=== PATIENT | female | born 1985 | race Two or more races ===

== ENCOUNTER 2017-01-12 08:12 | Outpatient (CLI) | payer MEDICAID ==
[~2017-01-12 08:12] MED LIST: ALFUZOSIN HCL10 MG PO; IBUPROFEN600 MG ORAL; NKM; NORCO 5-325 TA1 EACH ORAL
--- NOTE | 2017-01-12 11:26 | Diagnostic Imaging Report ---
Indication: STONES sided pain Technique: Spiral acquisitions obtained through the abdomen and pelvis. No oral or IV contrast utilized, per urinary stone protocol. Multiplanar reconstructions were generated. Total dose length product 65 mGycm. CTDIvol(s) 14 mGy. Dose reduction achieved using automated exposure control Comparison: 07/20/2015 Findings: 3 mm left upper pole calyceal calcification is again demonstrated. 4 mm left lower pole appears to migrated from its previous position in an interpolar region calyx. A 3 mm calculus is again demonstrated in the right interpolar region. Right lower pole calculus previously described is not currently evident. Previously demonstrated large right distal ureteral calculus is no longer evident. Currently, no ureteral calculi, hydronephrosis, or hydroureter is demonstrated. No significant perinephric fat stranding. Lack of IV contrast limits assessment of the renal parenchyma; no gross renal parenchyma cyst or mass demonstrated. Lack of IV contrast limits assessment of the other solid organs. A small calcification is again demonstrated in the right hepatic lobe. No gross focal liver lesion otherwise. The gallbladder, bile ducts, pancreas, spleen, adrenals are unremarkable. No retroperitoneal or mesenteric mass or adenopathy. No pelvic mass or adenopathy. The uterus and adnexal structures are unremarkable. Previously demonstrated left ovarian cyst is no longer evident. Previously demonstrated free pelvic fluid is no longer evident. The appendix is normal. No evidence of diverticulosis or diverticulitis. No small bowel distention. No free or loculated intraperitoneal air or fluid is evident. The included lung bases are clear. The bones are unremarkable. Impression: Bilateral intrarenal calculi. No evidence of ureteral calculi or hydronephrosis. Note that a right lower pole calyceal calculus that was evident previously is no longer present, may have passed in the interim. Note also the previously demonstrated right distal ureteral calculus is no longer evident. No other acute abnormality demonstrated. Small calcification within the liver, probably old granulomatous disease. The CT scanner at [facility] is accredited by the [employer] and the scans are performed using protocols designed to limit radiation exposure to as low as reasonably achievable to attain images of sufficient resolution adequate for diagnostic evaluation.
== END 2017-01-12 10:12 | disposition home or self-care (01) ==
LOC: CAT 08:12
DX: N20.0 Calculus of kidney (principal)
CPT/HCPCS: 74176

== ENCOUNTER 2017-03-17 08:15 | Emergency (ER) | payer BC, OTHER ==
[~2017-03-17] VITALS: Ht 165.1 cm; Wt 67.6 kg
--- NOTE | 2017-03-17 08:43 | Emergency Room Report ---
History of Present Illness General Chief Complaint: Abdominal Pain Source: Patient Present Illness HPI Patient presents with one hour of left lower quadrant pain. She rates it a 5/ 10. She thinks this is a kidney stone. She's had several. She denies any fevers or hematuria. She denies dysuria. She didn't take any medication for the pain this morning. She came for an ultrasound of. She's headache. Denies any nausea or vomiting. She does have Flomax at home but didn't take any of. The last stone the pain was much more severe. Had surgery May with 7 mm stone. Calcium oxylate. She doesn't believe she is . Denies cough, SOB, vomiting, diarrhea, dysuria, joint pain, headache, anxiety. Allergies: Coded Allergies: No Known Allergies (Unverified , 05/20/16) Patient History Past Medical History: see triage record Social History: Denies: smoking Social History Narrative it infrastructure consultant Last Menstrual Period: 02/17/17 Now: No : 1 Para: 0 Reviewed Nursing Documentation: PMH: Agreed, PSxH: Agreed Nursing Documentation-PMH Past Medical History: No History, Except For Hx Cardiac Problems: No - 3 kidney stones Review of Systems All Other Systems: negative except mentioned in HPI Physical Exam Vital Signs Date Time Temp Pulse Resp B/P (MAP) Pulse Ox O2 Delivery O2 Flow Rate FiO2 03/17/17 08:26 97.9 68 12 112/89 98 Room Air Sp02 EP Interpretation: reviewed, normal General Appearance: well appearing, no apparent distress, GCS 15 Head: normocephalic Eyes: bilateral eye normal inspection, bilateral eye PERRL ENT: moist mucus membranes Neck: supple Respiratory: lungs clear, normal breath sounds Cardiovascular #1: regular rate, rhythm Cardiovascular #2: 2+ radial (R) Gastrointestinal: normal inspection, normal bowel sounds, non tender, no mass, non-distended, tenderness - minimal LLQ Musculoskeletal: back normal, gait/station normal, normal range of motion Neurologic: alert, oriented x3, grossly normal Psychiatric: mood/affect normal Skin: normal inspection, warm/dry Medical Decision Making Diagnostic Impression: Primary Impression: Urolithiasis Qualified Codes: N20.0 - Calculus of kidney ER Course Patient presents with left lower quadrant pain and bruises she is a kidney stone. Differential also includes ovarian cyst, UTI and diverticulitis. She is no fever and no vomiting and no diarrhea. Evaluation will be with labs urinalysis and ultrasound. She'll be receiving IV hydration and Toradol. Labs with hematuria. WBC normal. Ultrasound suggests stone but not definitively identified. No hydro. (See report and below.) Patient improved with hydration and analgesia. Patient stable for outpatient observation and treatment. Laboratory Tests Test 03/17/17 06:00 03/17/17 09:05 Urine Color Pale yellow Urine Appearance Cloudy Urine pH 5 (4.5-8.0) Urine Specific [place] 1.015 (1.005-1.035) Urine Protein 2+ (NEGATIVE) H Urine Glucose (UA) Negative (NEGATIVE) Urine Ketones Negative (NEGATIVE) Urine Occult Blood 5+ (NEGATIVE) H Urine Nitrite Negative (NEGATIVE) Urine Bilirubin Negative (NEGATIVE) Urine Urobilinogen Normal MG/DL (0.0-1.0) Urine Leukocyte Esterase 1+ (NEGATIVE) H Urine RBC 60-80 /HPF (0 - 2) H Urine WBC 2-4 /HPF (0 - 2) Urine Squamous Epithelial Cells Occasional /LPF Urine Bacteria Occasional /HPF (NONE) Urine HCG, Qualitative Negative White Blood Count 6.4 K/UL (4.8-10.8) Red Blood Count 4.80 M/UL (4.20-5.40) Hemoglobin 13.5 G/DL (12.0-16.0) Hematocrit 43.1 % (37.0-47.0) Mean Corpuscular Volume 90 FL (80-99) Mean Corpuscular Hemoglobin 28.2 PG (27.0-31.0) Mean Corpuscular Hemoglobin Concent 31.4 G/DL (32.0-36.0) L Red Cell Distribution Width 12.5 % (11.6-14.8) Platelet Count 234 K/UL (150-450) Mean Platelet Volume 7.1 FL (6.5-10.1) Neutrophils (%) (Auto) 57.5 % (45.0-75.0) Lymphocytes (%) (Auto) 32.6 % (20.0-45.0) Monocytes (%) (Auto) 7.6 % (1.0-10.0) Eosinophils (%) (Auto) 1.6 % (0.0-3.0) Basophils (%) (Auto) 0.8 % (0.0-2.0) Sodium Level 140 mEQ/L (135-145) Potassium Level 4.1 mEQ/L (3.4-4.9) Chloride Level 104 mEQ/L (98-107) Carbon Dioxide Level 27 mEQ/L (20-30) Anion Gap 9 (5-15) Blood Urea Nitrogen 17 mg/dL (7-23) Creatinine 0.8 mg/dL (0.5-0.9) Estimate Glomerular Filtration Rate > 60 mL/min (>60) Glucose Level 100 mg/dL (74-106) Calcium Level 9.3 mg/dL (8.6-10.2) Total Bilirubin < 0.2 mg/dL (0.0-1.2) Aspartate Amino Transferase (AST) 23 U/L (5-40) Alanine Aminotransferase (ALT) 14 U/L (3-33) Alkaline Phosphatase 56 U/L (35-104) Total Protein 7.1 g/dL (6.6-8.7) Albumin 4.1 g/dL (3.5-5.2) Globulin 3.0 g/dL Albumin/Globulin Ratio 1.3 (1.0-2.7) Lipase 26 U/L (< 60) CT/MRI/US Diagnostic Results CT/MRI/US Diagnostic Results : Imaging Test Ordered: US Impression The size, contour, and echogenicity of both kidneys are within normal limits. There are punctate echogenic foci in the left kidney likely small nonobstructive stones. There is no definite hydronephrosis. Left kidney is 11.6 cm. Right kidney is 10.4 cm. This The IVC and urinary bladder are unremarkable. Impression: Suspected nonobstructive stones within the left kidney. Last Vital Signs Date Time Temp Pulse Resp B/P (MAP) Pulse Ox O2 Delivery O2 Flow Rate FiO2 03/17/17 10:52 64 15 108/63 100 Room Air 03/17/17 10:11 97.3 Status: improved Disposition: HOME, SELF-CARE Condition: Improved Scripts Tamsulosin HCl (Flomax) 0.4 Mg Cap.er.24h 0.4 MG ORAL DAILY, #7 CAP Prov: Bradley Banda M.D. 03/17/17 Ibuprofen* (MOTRIN*) 600 Mg Tablet 600 MG ORAL Q6H Y for For Pain, #16 TAB Prov: Bradley Banda M.D. 03/17/17 Bradley Banda M.D. Mar 17, 2017 08:43
[2017-03-17] MEDS ORDERED: Ketorolac 30mg Inj IV ONE (08:45)
[2017-03-17 09:21] LABS: APPEARANCE,URINE CLOUDY; KETONES,URINE NEGATIVE (NEGATIVE); LEUKOCYTE ESTERASE ,URINE 1+ (NEGATIVE); NITRITE,URINE NEGATIVE (NEGATIVE); PH,URINE 5 (4.5-8.0); PROTEIN,URINE 2+ (NEGATIVE); UROBILINOGEN,URINE NORMAL MG/DL (0.0-1.0)
[2017-03-17 09:21] LABS: BASOPHILS % (AUTO) 0.8 % (0.0-2.0); EOSINOPHILS % (AUTO) 1.6 % (0.0-3.0); LYMPHOCYTES % (AUTO) 32.6 % (20.0-45.0); MEAN CORPUSCULAR HEMOGLOBIN 28.2 PG (27.0-31.0); MEAN CORPUSCULAR HGB CONC 31.4 G/DL (32.0-36.0); MEAN CORPUSCULAR VOLUME 90 FL (80-99); MEAN PLATELET VOLUME 7.1 FL (6.5-10.1); MONOCYTES % (AUTO) 7.6 % (1.0-10.0); NEUTROPHILS % (AUTO) 57.5 % (45.0-75.0); PLATELET COUNT 234 K/UL (150-450); RED CELL DISTRIBUTION WIDTH 12.5 % (11.6-14.8); WHITE BLOOD COUNT 6.4 K/UL (4.8-10.8)
[2017-03-17 09:35] LABS: BACTERIA,URINE OCCASIONAL /HPF; RBC,URINE 60-80 /HPF (0 - 2); SQUAMOUS EPITHELIAL CELL,UR OCCASIONAL /LPF (NONE/OCC)
[2017-03-17 09:41] LABS: ALANINE AMINOTRANSFERASE 14 U/L (3-33); ALBUMIN/GLOBULIN RATIO 1.3 (1.0-2.7); ANION GAP 9 (5-15); ASPARTATE AMINO TRANSFERASE 23 U/L (5-40); CALCIUM 9.3 mg/dL (8.6-10.2); CARBON DIOXIDE 27 mEQ/L (20-30); CHLORIDE 104 mEQ/L (98-107); CREATININE 0.8 mg/dL (0.5-0.9); GLOMERULAR FILTRATION RATE > 60 mL/min (>60); HEMOLYSIS 2; LIPASE 26 U/L (< 60); POTASSIUM 4.1 mEQ/L (3.4-4.9); SODIUM 140 mEQ/L (135-145); TOTAL PROTEIN 7.1 g/dL (6.6-8.7)
[2017-03-17 09:45] VITALS: BP 106/67
[2017-03-17] MEDS ORDERED: IBUPROFEN600 MG ORAL (10:31)
[2017-03-17] MEDS ORDERED: FLOMAX0.4 MG ORAL (10:31)
[2017-03-17 10:52] VITALS: BP 108/63
--- NOTE | 2017-03-17 11:41 | Diagnostic Imaging Report ---
Indication:Elevated Bun and Creatinine. Technique: Grayscale and duplex Doppler imaging of the kidneys performed. Comparison: None Findings: The size, contour, and echogenicity of both kidneys are within normal limits. There are punctate echogenic foci in the left kidney likely small nonobstructive stones. There is no definite hydronephrosis. Left kidney is 11.6 cm. Right kidney is 10.4 cm. This The IVC and urinary bladder are unremarkable. Impression: Suspected nonobstructive stones within the left kidney.
== END 2017-03-17 10:54 | disposition home or self-care (01) ==
LOC: EMR 08:56
DX: N20.9 Urinary calculus, unspecified (principal); Z87.442 Personal history of urinary calculi
CPT/HCPCS: 36415; 76775; 80053; 81003; 81025; 83690; 85025; 96361; 96374; 99284; J1885

== ENCOUNTER 2017-06-09 04:13 | Emergency (ER) | payer BC, OTHER ==
[~2017-06-09] VITALS: Ht 165.1 cm; Wt 66.7 kg
[~2017-06-09 04:13] MED LIST changes: +FLOMAX0.4 MG ORAL
[2017-06-09] MEDS ORDERED: TERCONAZOLE20 G1 VG (04:34)
[2017-06-09] MEDS ORDERED: FLUCONAZOLE100 MG ORAL (04:34)
[2017-06-09] MEDS ORDERED: CEPHALEXIN500 MG ORAL (04:34)
[2017-06-09] MEDS ORDERED: CIPROFLOXACIN500 M2 ORAL (04:34)
--- NOTE | 2017-06-09 04:40 | Emergency Room Report ---
History of Present Illness General Chief Complaint: Female Urogenital Problems Source: Patient Present Illness HPI This is a 31-year-old female with history of kidney stone. Also has frequent urine tract infection. She was treated initially for UTI. Culture grew out Escherichia coli and was switched to a different antibiotics. She developed these infection. Just finished a course of Diflucan. Now complaining of vaginal pain on the left pelvic area. No nausea no vomiting. No fever or chills. Said pain is all over. 02/23. Allergies: Coded Allergies: No Known Allergies (Unverified , 05/20/16) Patient History Past Medical History: see triage record, old chart reviewed Past Surgical History: other Pertinent Family History: none Social History: Denies: smoking Last Menstrual Period: apr 21 Now: No Immunizations: other Reviewed Nursing Documentation: PMH: Agreed, PSxH: Agreed Nursing Documentation-PMH Past Medical History: No History, Except For Hx Cardiac Problems: No - 3 kidney stones Review of Systems Eye: Denies: eye pain, blurred vision ENT: Denies: ear pain, nose congestion, throat swelling Respiratory: Denies: cough, shortness of breath Cardiovascular: Denies: chest pain, palpitations Gastrointestinal: Reports: abdominal pain, Denies: diarrhea, nausea, vomiting Musculoskeletal: Denies: back pain, joint pain Skin: Denies: rash Neurological: Denies: headache, numbness Endocrine: Denies: increased thirst, increased urine Hematologic/Lymphatic: Denies: easy bruising All Other Systems: negative except mentioned in HPI Physical Exam Vital Signs Date Time Temp Pulse Resp B/P (MAP) Pulse Ox O2 Delivery O2 Flow Rate FiO2 06/09/17 04:16 97.7 77 16 119/81 99 Room Air vitals normal Sp02 EP Interpretation: reviewed, normal General Appearance: well appearing, no apparent distress, alert Head: normocephalic, atraumatic Eyes: bilateral eye PERRL, bilateral eye EOMI ENT: hearing grossly normal, normal pharynx Neck: full range of motion, supple, no meningismus Respiratory: chest non-tender, lungs clear, normal breath sounds Cardiovascular #1: regular rate, rhythm, no murmur Gastrointestinal: normal bowel sounds, non tender, no mass, no organomegaly, no bruit, non-distended Genitourinary: other - pelvic done with female RN as regulatory affairs spec. External exam normal. internal exam with mild whitish dc. Musculoskeletal: back normal, gait/station normal, normal range of motion Psychiatric: mood/affect normal Skin: warm/dry Medical Decision Making Diagnostic Impression: Primary Impression: Urolithiasis Qualified Codes: N21.8 - Other lower urinary tract calculus ER Course Patient presents with pelvic a left-sided pain. Urinalysis showed blood. She just had 2 courses of antibiotics we will hold off antibiotics for now until cultures resulted. She looked pretty comfortable. I see no need for CT scan right now. If symptoms continue or worsen, may need CAT scan. We'll hold off the radiation for now. Patient agreed with this. Last Vital Signs Date Time Temp Pulse Resp B/P (MAP) Pulse Ox O2 Delivery O2 Flow Rate FiO2 06/09/17 04:16 97.7 77 16 119/81 99 Room Air Status: improved Disposition: HOME, SELF-CARE Condition: Stable Scripts Hydrocodone/Acetaminophen 5-325* (HYDROCODONE/ACETAMINOPHEN 5-325*) 1 Each Tablet 1 TAB ORAL Q6H Y for For Pain, #15 TAB 0 Refills Prov: NABIL BOWLING M.D. 06/09/17 Additional Instructions: Followup with your DrSasha in 7 days. Return if symptom worsen. NABIL BOWLING M.D. Jun 09, 2017 04:40
[2017-06-09 05:00] LABS: APPEARANCE,URINE CLEAR; KETONES,URINE NEGATIVE (NEGATIVE); LEUKOCYTE ESTERASE ,URINE NEGATIVE (NEGATIVE); NITRITE,URINE POSITIVE (NEGATIVE); PH,URINE 6 (4.5-8.0); PROTEIN,URINE 1+ (NEGATIVE); UROBILINOGEN,URINE 8 MG/DL (0.0-1.0)
[2017-06-09 05:15] LABS: BACTERIA,URINE FEW /HPF; ICTOTEST POSITIVE; RBC,URINE 40-60 /HPF (0 - 2); SQUAMOUS EPITHELIAL CELL,UR FEW /LPF (NONE/OCC); WBC,URINE 0-2 /HPF (0 - 2)
[2017-06-09] MEDS ORDERED: HYDROCODON-ACE1 EA15 ORAL (05:36)
[2017-06-09 05:43] VITALS: BP 119/81
== END 2017-06-09 05:43 | disposition home or self-care (01) ==
LOC: EMR 04:35
DX: N20.9 Urinary calculus, unspecified (principal); Z87.442 Personal history of urinary calculi
CPT/HCPCS: 81003; 81025; 87210; 99283

== ENCOUNTER 2017-11-08 09:09 | Outpatient (CLI) | payer BC ==
[~2017-11-08 09:09] MED LIST changes: +CEPHALEXIN500 MG ORAL; +CIPROFLOXACIN500 M2 ORAL; +FLUCONAZOLE100 MG ORAL; +HYDROCODON-ACE1 EA15 ORAL; +TERCONAZOLE20 G1 VG
--- NOTE | 2017-11-08 18:28 | Diagnostic Imaging Report ---
Indication: Renal stone Technique: CT of the abdomen and pelvis utilizing automated exposure control without intravenous contrast. Axial, sagittal and coronal reformats. CT dose: Total DLP 634 mGycm; CTDI vol 13.4 mGy Comparison: 01/03/2017 and 05/20/2016 Findings: Please note that evaluation of the abdominal and pelvic viscera is limited without the use of intravenous and oral contrast. Within these limitations the following observations are made: Imaged lung bases are clear. Heart size within normal limits. There is no pericardial effusion. There is hypoattenuation of the blood pool relative to the intraventricular septum. This finding suggests anemia. Correlation with CBC recommended. There is an unchanged punctate calcification in the right lobe of the liver, possibly related to prior granulomatous exposure . Otherwise, noncontrast evaluation of the liver, gallbladder, spleen, adrenal glands and pancreas is grossly unremarkable. There is an unchanged 3 mm stone in the midpole of the right kidney (series 3 image #48). There is a 4 mm stone in the left proximal ureter (series 3 image #61). This likely represents interval migration of one of the previously seen left renal stones. The other stone (2 renal stones noted on the left previously) is not seen and may have intervally been passed. There is no hydronephrosis on the right. There is mild hydronephrosis on the left. Bladder is unremarkable in appearance. Uterus and adnexa are grossly unremarkable for noncontrast CT. There is trace fluid in the pelvis, likely physiologic. There is no free intraperitoneal air. There is no evidence of bowel obstruction or definite evidence to suggest bowel inflammation. Appendix is normal. Abdominal aorta normal in caliber. No pathologically enlarged lymphadenopathy is appreciated. No acute osseous abnormality is seen. IMPRESSION: 4 mm stone in the left proximal ureter with mild left-sided hydronephrosis. This is likely related to interval migration of one of the previously seen left renal stones. Additional left renal stone previously seen no longer identified and may have been passed. Unchanged 3mm stone in the midpole of the right kidney. No right-sided hydronephrosis. Additional findings as above. The CT scanner at [facility] is accredited by the [employer] and the scans are performed using protocols designed to limit radiation exposure to as low as reasonably achievable to attain images of sufficient resolution adequate for diagnostic evaluation.
== END 2017-11-08 11:09 | disposition home or self-care (01) ==
LOC: CAT 09:09
DX: N13.2 Hydronephrosis with renal and ureteral calculous obstruction (principal)
CPT/HCPCS: 74176